=== PATIENT | male | born 1945 | race Caucasian/White ===

== ENCOUNTER 2017-10-17 | Day surgery (SDC) | END 2017-10-17 22:44 | disposition home or self-care (01) ==

== ENCOUNTER 2018-07-04 12:12 | Observation (INO) | payer OTHER ==
[~2018-07-04] VITALS: Ht 175.3 cm; Wt 160.2 kg
[~2018-07-04 12:12] MED LIST: ALBU90OI INH; ATOR20 PO; BENADRYL25 MG PO; CARV6.25 PO; MIRALAX PO; Pepcid20 MG PO; Prednisone20 MG PO; QVAR7.3 G1 INH; ZESTORETIC 20-251 E1 PO; ZESTORETIC PO
[2018-07-04 12:33] LABS: BASOPHILS ABSOLUTE AUTO 0.11 K/mm3 (0.00-0.23); BASOPHILS PERCENT AUTO 1 % (0-2); EOSINOPHILS PERCENT AUTO 3 % (0-6); Hemoglobin 15.6 g/dL (13.5-17.5); IMMATURE GRAN ABSOLUTE AUTO 0.02 K/mm3 (0.00-0.10); IMMATURE GRAN PERCENT AUTO 0 % (0-1); LYMPHOCYTES ABSOLUTE AUTO 1.94 K/mm3 (0.84-5.20); LYMPHOCYTES PERCENT AUTO 20 % (21-46); MONOCYTES ABSOLUTE AUTO 0.99 K/mm3 (0.16-1.47); MONOCYTES PERCENT AUTO 10 % (4-13); Mean Corpuscular HGB Conc 33.2 g/dL (31.5-36.5); Mean Corpuscular Volume 97 fL (80-100); Mean Platelet Volume 10.7 fL (9.1-12.4); NEUTROPHILS ABSOLUTE AUTO 6.26 K/mm3 (1.96-9.15); NEUTROPHILS PERCENT AUTO 65 % (41-73); Platelet Count 377 K/mm3 (150-400); RDW Coefficient Variation 13.7 % (11.7-14.2); Red Blood Cell Count 4.87 M/mm3 (4.30-5.90); White Blood Cell Count 9.62 K/mm3 (4.00-11.30)
[2018-07-04 12:59] LABS: Alanine Aminotransfer (ALT/SGP 33 U/L (12-78); Albumin, Blood 3.5 g/dL (3.4-5.0); Albumin/Globulin Ratio 0.8 (0.8-1.8); Alk Phos 90 U/L (50-136); Anion Gap 7 mmol/L (6-16); Aspartate Aminotrans (AST/SGOT 22 U/L (12-37); Bilirubin, Total 0.4 mg/dL (0.1-1.0); Blood Urea Nitrogen 25 mg/dL (8-24); Bun/Creatinine Ratio 24.5 (12.0-20.0); CO2, Blood 28 mmol/L (21-32); Calcium, Blood 8.7 mg/dL (8.5-10.1); Chloride, Blood 104 mmol/L (98-108); Creatinine, Blood 1.02 mg/dL (0.60-1.20); Globulin, Blood 4.2 g/dL (2.2-4.0); Glomerular Filtration Rate >60 (60-); Glucose, Blood 108 mg/dL (70-99); Potassium, Blood 3.8 mmol/L (3.5-5.5); Sodium, Blood 139 mmol/L (136-145); Total Protein, Blood 7.7 g/dL (6.4-8.2); Troponin I 0.067 ng/mL (0.000-0.040)
[2018-07-04] MEDS ORDERED: **INCOMPLETE MED REC (14:46)
[2018-07-04] MEDS ORDERED: POTCHL10ER PO (14:56)
[2018-07-04] MEDS ORDERED: FURO40 PO (14:57)
[2018-07-04] MEDS ORDERED: XARELTO20 MG PO (14:57)
[2018-07-04] MEDS ORDERED: ZYPITAMAG2 MG PO (14:58)
[2018-07-04] MEDS ORDERED: METO25ER PO (14:59)
[2018-07-04] MEDS ORDERED: AMLO5 PO (15:03)
[2018-07-04 17:27] LABS: D-Dimer, Quantitative 0.29 mg/L FEU (0.00-0.52); International Normalized Ratio 1.11; Prothrombin Time Results 11.7 Sec (9.7-11.5)
[2018-07-04] MEDS ORDERED: LIVALO4 MG PO (18:19)
--- NOTE | 2018-07-04 18:48 | NUR ---
NURSING PCU DAYSHIFT SUMMARY: Assumed care of pt at approx 1800. Arrived from ER via gurney accompanied by friend and RN. Xfer w/SBA to unit bed, mild general weakness noted. Skin is fairly intact w/redness noted to BLE. C/O pain in L shoulder, back, and L neck which has improved since medication adminimstration in ER. Tele in place, afib, hypertensive, non-pitting BLE edema, annette hose in place. L/S fairly dim t/o, dyspnea w/minimal exertion, O2 sat mid 90's on 3L NC, no noted cough. Abd obese, SNT, BT+, voiding w/o difficulty per pt. PIV x1, hep gtt infusing at 13u/kg/hr as per pharmacy dosing. No s/s of acute distress at this time. Troponin drawn, awaiting results. Pt oriented to room and call system. Pt denies any current needs or questions regarding plan of care. Call light in reach and pt is able to use w/o difficulty. Cont to monitor until rpt is given to NOC RN.
[2018-07-04 19:13] LABS: Creatine Kinase MB 2.2 ng/mL (0.0-3.6); Creatine Kinase MB Index 1.5 (0.0-4.0); Troponin I 0.066 ng/mL (0.000-0.040)
[2018-07-05 00:44] LABS: BASOPHILS ABSOLUTE AUTO 0.08 K/mm3 (0.00-0.23); BASOPHILS PERCENT AUTO 1 % (0-2); EOSINOPHILS ABSOLUTE AUTO 0.39 K/mm3 (0.00-0.68); EOSINOPHILS PERCENT AUTO 4 % (0-6); Hematocrit 41.8 % (37.0-53.0); Hemoglobin 13.9 g/dL (13.5-17.5); IMMATURE GRAN ABSOLUTE AUTO 0.02 K/mm3 (0.00-0.10); IMMATURE GRAN PERCENT AUTO 0 % (0-1); LYMPHOCYTES PERCENT AUTO 22 % (21-46); MONOCYTES ABSOLUTE AUTO 0.94 K/mm3 (0.16-1.47); MONOCYTES PERCENT AUTO 9 % (4-13); Mean Corpuscular HGB 32.6 pg (26.0-34.0); Mean Corpuscular HGB Conc 33.3 g/dL (31.5-36.5); Mean Corpuscular Volume 98 fL (80-100); NEUTROPHILS PERCENT AUTO 64 % (41-73); Platelet Count 339 K/mm3 (150-400); RDW Coefficient Variation 13.8 % (11.7-14.2); RDW Standard Deviation 49.5 fL (35.1-46.3); Red Blood Cell Count 4.26 M/mm3 (4.30-5.90); White Blood Cell Count 10.03 K/mm3 (4.00-11.30)
[2018-07-05 01:03] LABS: Anion Gap 7 mmol/L (6-16); Blood Urea Nitrogen 29 mg/dL (8-24); Bun/Creatinine Ratio 25.2 (12.0-20.0); CO2, Blood 30 mmol/L (21-32); Calcium, Blood 8.4 mg/dL (8.5-10.1); Chloride, Blood 103 mmol/L (98-108); Cholesterol 130 mg/dL (50-200); Creatinine, Blood 1.15 mg/dL (0.60-1.20); Glomerular Filtration Rate >60 (60-); Glucose, Blood 130 mg/dL (70-99); Potassium, Blood 3.5 mmol/L (3.5-5.5); Sodium, Blood 140 mmol/L (136-145); Triglycerides 203 mg/dL (30-160)
[2018-07-05 01:06] LABS: Creatine Kinase MB 2.6 ng/mL (0.0-3.6); Creatine Kinase MB Index 1.6 (0.0-4.0); Troponin I 0.061 ng/mL (0.000-0.040)
--- NOTE | 2018-07-05 05:34 | NUR ---
SHIFT SUMMARY PT ALERT AND ORIENTED. VS STABLE. PT RESTED MOST OF SHIFT. LS DIM THROUGHOUT. 02 SATS >92% ON 2-3L NC. PT DENIES ANY CHEST PAIN. HEPARIN GTT INF AT 15/U/KG. PT VOIDING WITHOUT DIFFICULTY. ABD DISTENDED PT STATES NORMAL. PT DENIES A NEED FOR ANYTHING AT THIS TIME. NO OTHER CHANGES SINCE INITIAL ASSESSMENT. WILL CONTINUE TO MONITOR AND REPORT TO ONCOMING RN. CALL LIGHT IN REACH.
--- NOTE | 2018-07-05 07:31 | NUR ---
NURSING PCU DAYSHIFT: Assumed care of pt at approx 0700. A/O, pleasant, cooperative w/care, mildly [place]. Denies any pain/discomfort. Repositions independently though mild general weakness is noted. Skin is fairly intact w/redness noted to RLE. Tele in place, afib w/HR 90's, SBP 140's, 1+ BLE edema, no c/o CP/pressure. L/S dim t/o, dyspnea w/minimal exertion, O2 sat mid 90's on RA, no noted cough. Abd obese and distended which pt states is normal, BT+, voiding w/o difficuty per pt. PIV x1, hep gtt infusing at 15u/kg/hr. No s/s of acute distress at this time. HC tech currently at bedside for ECHO. Pt denies any current needs or questions regarding plan of care. Awaiting rounding from PMD. Call light in reach, cont to monitor for any changes.
--- NOTE | 2018-07-05 08:43 | NUR ---
ECHOCARDIOGRAM COMPLETE
--- NOTE | 2018-07-05 12:03 | NUR ---
Spiritual care visit conducted. Patient was sitting up in bed and alert when I entered the patient's room. I introduced myself and patient welcomed me to stay. Therapeutic alliance was established and patient openly shared about the loss of his to cancer, the struggle he has had in his weight management, and his spiritual journey. I Provided grief support, spiritual guidance, reinforced helpful attitudes and practices and quoted inspirational scriptures. Patient responded well and was complimentary of my visit.
--- NOTE | 2018-07-05 18:29 | NUR ---
NURSING PCU DAYSHIFT: No acute changes noted t/o the shift. Pt has been pleasant and remains in good spirits. Seen by PMD, new d/o received. Two day stress test scheduled w/resting portion today, plan for stress portion tomorrow. Pt denies any current needs or questions regarding plan of care. Call light in reach and pt is able to use w/o difficulty. Cont to monitor until rpt is given to NOC RN.
[2018-07-06 04:13] LABS: BASOPHILS ABSOLUTE AUTO 0.09 K/mm3 (0.00-0.23); BASOPHILS PERCENT AUTO 1 % (0-2); EOSINOPHILS PERCENT AUTO 4 % (0-6); Hematocrit 43.3 % (37.0-53.0); Hemoglobin 14.1 g/dL (13.5-17.5); IMMATURE GRAN ABSOLUTE AUTO 0.02 K/mm3 (0.00-0.10); IMMATURE GRAN PERCENT AUTO 0 % (0-1); LYMPHOCYTES PERCENT AUTO 17 % (21-46); MONOCYTES ABSOLUTE AUTO 0.98 K/mm3 (0.16-1.47); MONOCYTES PERCENT AUTO 10 % (4-13); Mean Corpuscular HGB 31.8 pg (26.0-34.0); Mean Corpuscular HGB Conc 32.6 g/dL (31.5-36.5); Mean Corpuscular Volume 98 fL (80-100); Mean Platelet Volume 11.4 fL (9.1-12.4); NEUTROPHILS ABSOLUTE AUTO 7.12 K/mm3 (1.96-9.15); NEUTROPHILS PERCENT AUTO 69 % (41-73); Platelet Count 338 K/mm3 (150-400); RDW Coefficient Variation 13.5 % (11.7-14.2); RDW Standard Deviation 48.8 fL (35.1-46.3); Red Blood Cell Count 4.43 M/mm3 (4.30-5.90); White Blood Cell Count 10.31 K/mm3 (4.00-11.30)
[2018-07-06 04:26] LABS: Albumin, Blood 3.1 g/dL (3.4-5.0); Anion Gap 7 mmol/L (6-16); Blood Urea Nitrogen 25 mg/dL (8-24); Bun/Creatinine Ratio 23.4 (12.0-20.0); CO2, Blood 31 mmol/L (21-32); Calcium, Blood 8.6 mg/dL (8.5-10.1); Chloride, Blood 102 mmol/L (98-108); Creatinine, Blood 1.07 mg/dL (0.60-1.20); Glomerular Filtration Rate >60 (60-); Glucose, Blood 128 mg/dL (70-99); Phosphorus, Blood 3.6 mg/dL (2.5-4.9); Potassium, Blood 3.6 mmol/L (3.5-5.5); Sodium, Blood 140 mmol/L (136-145); Troponin I 0.053 ng/mL (0.000-0.040)
--- NOTE | 2018-07-06 05:27 | NUR ---
SHIFT SUMMARY: PATIENT SLEPT WELL THIS SHIFT, VSS. PATIENT AWARE THAT HE IS NPO FOR BREAKFAST IN PREPERATION OF 2ND PORTION OF STRESS TEST. NO OTHER ISSUES NOTED, CALL LIGHT WITHIN REACH, BED LOW AN LOCKED
--- NOTE | 2018-07-06 16:59 | NUR ---
SUMMARY the pt completed the second portion of his stress test. Reports throughout the day that he has had no chest pain. His neck pain was relieved this morning with tylenol and lidocaine patch. He states that his current dyspnea with minimal exertion is baseline normal for him. States that he had an angiogram 2 years ago and that the vessels were clear. States also that he had an echocardiogram around the same time. Cardiology consult was done today by Dr. Vega; the pt hopes that he can be released to go home after the results of the stress test are done.
[2018-07-06] MEDS ORDERED: AMLO5 PO (18:08)
[2018-07-06] MEDS ORDERED: ACET325 PO (18:08)
[2018-07-06] MEDS ORDERED: BISA10S PR (18:09)
[2018-07-06] MEDS ORDERED: DOCU100 PO (18:09)
[2018-07-06] MEDS ORDERED: LIDO700A20 TOP (18:09)
[2018-07-06] MEDS ORDERED: MELA3 PO (18:10)
[2018-07-06] MEDS ORDERED: ONDA4ODT MM (18:11)
[2018-07-06] MEDS ORDERED: NITR.4SL SL (18:11)
== END 2018-07-06 18:45 | disposition home or self-care (01) ==
LOC: ER 12:12 → PCU 12:13
PROVIDERS: Emergency Medicine; Physician Assistant; ADMIT Family Medicine
DX: R07.9 Chest pain, unspecified (principal); R79.89 Other specified abnormal findings of blood chemistry; I10 Essential (primary) hypertension; E78.5 Hyperlipidemia, unspecified; I48.0 Paroxysmal atrial fibrillation; E66.01 Morbid (severe) obesity due to excess calories; R73.03 Prediabetes; Z87.891 Personal history of nicotine dependence; Z79.01 Long term (current) use of anticoagulants; Z88.8 Allergy status to other drugs, medicaments and biological substances; Z79.899 Other long term (current) drug therapy
CPT/HCPCS: 36415; 71046; 78452; 80048; 80053; 80069; 82465; 82550; 82553; 83880; 84478; 84484; 85025; 85379; 85610; 85730; 93005; 93010; 93017; 93306; 94762; 96365; 96375; 96376; 99285-25; A9500; C9113; G0378; J0706; J1644; J2270; J2785; J7030

== ENCOUNTER → 2018-08-14 | Outpatient (CLI) | payer OTHER ==
[~2018-08-14] MED LIST changes: +**INCOMPLETE MED REC; +ACET325 PO; +AMLO5 PO; +BISA10S PR; +DOCU100 PO; +FURO40 PO; +LIDO700A20 TOP; +LIVALO4 MG PO; +MELA3 PO; +METO25ER PO; +NITR.4SL SL; +ONDA4ODT MM; +POTCHL10ER PO; +XARELTO20 MG PO; +ZYPITAMAG2 MG PO
[2018-08-14 11:20] LABS: BASOPHILS PERCENT AUTO 1 % (0-2); EOSINOPHILS PERCENT AUTO 2 % (0-6); Hematocrit 47.4 % (37.0-53.0); Hemoglobin 15.9 g/dL (13.5-17.5); IMMATURE GRAN ABSOLUTE AUTO 0.02 K/mm3 (0.00-0.10); IMMATURE GRAN PERCENT AUTO 0 % (0-1); LYMPHOCYTES PERCENT AUTO 15 % (21-46); MONOCYTES ABSOLUTE AUTO 0.84 K/mm3 (0.16-1.47); MONOCYTES PERCENT AUTO 9 % (4-13); Mean Corpuscular HGB 32.1 pg (26.0-34.0); Mean Corpuscular HGB Conc 33.5 g/dL (31.5-36.5); Mean Corpuscular Volume 96 fL (80-100); NEUTROPHILS ABSOLUTE AUTO 6.84 K/mm3 (1.96-9.15); NEUTROPHILS PERCENT AUTO 73 % (41-73); RDW Standard Deviation 49.1 fL (35.1-46.3); Red Blood Cell Count 4.96 M/mm3 (4.30-5.90)
[2018-08-14 11:35] LABS: Anion Gap 6 mmol/L (6-16); Blood Urea Nitrogen 22 mg/dL (8-24); CO2, Blood 33 mmol/L (21-32); Calcium, Blood 8.9 mg/dL (8.5-10.1); Chloride, Blood 102 mmol/L (98-108); Creatinine, Blood 1.16 mg/dL (0.60-1.20); Glomerular Filtration Rate >60 (60-); Glucose, Blood 142 mg/dL (70-99); Potassium, Blood 4.5 mmol/L (3.5-5.5); Sodium, Blood 141 mmol/L (136-145)
[2018-08-14 11:42] LABS: Mean Platelet Volume 11.3 fL (9.1-12.4); Platelet Count 420 K/mm3 (150-400)
== END | disposition home or self-care (01) ==
LOC: LAB SHORT 11:14 → LAB EV 11:14
PROVIDERS: Family Medicine
DX: I48.91 Unspecified atrial fibrillation (principal); R06.09 Other forms of dyspnea
CPT/HCPCS: 80048; 83880; 84484; 85025

== ENCOUNTER 2018-09-11 15:43 | Emergency (ER) | payer OTHER ==
[~2018-09-11] VITALS: Ht 175.3 cm; Wt 151.1 kg
[2018-09-11] MEDS ORDERED: COLCRYS0.6 MG PO (16:40)
[2018-09-11] MEDS ORDERED: Norco 5-325 Ta1 EACH PO (16:40)
== END 2018-09-11 18:06 | disposition home or self-care (01) ==
LOC: ER 15:43
DX: M79.672 Pain in left foot (principal); H61.22 Impacted cerumen, left ear; I11.0 Hypertensive heart disease with heart failure; I50.9 Heart failure, unspecified; I48.91 Unspecified atrial fibrillation; Z88.1 Allergy status to other antibiotic agents; Z88.8 Allergy status to other drugs, medicaments and biological substances; Z79.899 Other long term (current) drug therapy; Z87.891 Personal history of nicotine dependence
CPT/HCPCS: 73630; 99283-25; A9270-GY

== ENCOUNTER 2019-05-06 06:00 | Emergency (ER) | payer OTHER ==
[~2019-05-06] VITALS: Ht 175.3 cm; Wt 149.7 kg
[~2019-05-06 06:00] MED LIST changes: +COLCRYS0.6 MG PO; +Norco 5-325 Ta1 EACH PO
[2019-05-06 07:45] LABS: Calcium, Ionized (POC) 1.19 mmol/L (1.10-1.46); Chloride (POC) 94 mmol/L (98-108); Glucose (ISTAT POC) 136 mg/dL (70-99); Hemoglobin (POC) 15.6 g/dL (13.5-17.5); Potassium (POC) 3.6 mmol/L (3.5-5.5); Sodium (POC) 137 mmol/L (135-148); Total CO2 (POC) 33 mmol/L (21-32)
[2019-05-06] MEDS ORDERED: COLCHICINE0.6 M1 PO (08:17)
== END 2019-05-06 08:52 | disposition home or self-care (01) ==
LOC: ER 06:00
PROVIDERS: Emergency Medicine
DX: M25.571 Pain in right ankle and joints of right foot (principal); I11.0 Hypertensive heart disease with heart failure; I50.9 Heart failure, unspecified; I48.91 Unspecified atrial fibrillation; M10.9 Gout, unspecified; Z87.891 Personal history of nicotine dependence; Z88.1 Allergy status to other antibiotic agents; Z88.8 Allergy status to other drugs, medicaments and biological substances; Z79.899 Other long term (current) drug therapy
CPT/HCPCS: 73610; 80047; 85014; 99284-25

== ENCOUNTER 2020-04-01 06:39 | Day surgery (SDC) | payer OTHER ==
[~2020-04-01] VITALS: Ht 175.3 cm; Wt 165.3 kg
[~2020-04-01 06:39] MED LIST changes: +ALLO100 PO; +COLCHICINE0.6 M1 PO; +COLCHICINE0.6 MG PO; +LIVALO2 MG PO; +METF500 PO; +METO50ER PO; +Norvasc5 MG PO; +POTA10T PO; +TAMS.4ER PO; +XARELTO2.5 M1 PO
--- NOTE | 2020-04-01 07:25 | NUR ---
History, Chart, Medications and Allergies reviewed before start of procedure. Patient States Post-Procedure ride home has been arranged.
--- NOTE | 2020-04-01 08:00 | NUR ---
04/01/20 0800 [place] History, Chart, Medications and Allergies reviewed before start of procedure.MONITOR INTACT WITH CONTINUOUS PULSE OXIMETRY AND INTERMITTENT BP.3-LEAD EKG REVIEWED WITH PHYSICIAN PRIOR TO START OF PROCEDURE.O2 VIA N/C INTACT THROUGHOUT SEDATION/PROCEDURE. See Anesthesia record.
--- NOTE | 2020-04-01 09:17 | NUR ---
Patient up to Ambulate independently. Gait steady. Discharge instructions reviewed with patient. Patient verbalizes understanding. Copy given to patient to take home. Discharged via wheelchair to private car for ride home.
== END 2020-04-01 23:21 | disposition home or self-care (01) ==
LOC: ORSCMMR 06:39 → ORD 08:00 → ORSCMMR 23:21
PROVIDERS: Internal Medicine Gastroenterology
PROC: 0DBM8ZX Excision of Descending Colon, Via Natural or Artificial Opening Endoscopic, Diagnostic (ICD-10-PCS; principal; 2020-04-01 08:00)
PROC: 0DBE8ZX Excision of Large Intestine, Via Natural or Artificial Opening Endoscopic, Diagnostic (ICD-10-PCS; principal; 2020-04-01 08:00)
DX: K51.90 Ulcerative colitis, unspecified, without complications (principal); K51.40 Inflammatory polyps of colon without complications; I48.20 Chronic atrial fibrillation, unspecified; G47.33 Obstructive sleep apnea (adult) (pediatric); E11.9 Type 2 diabetes mellitus without complications; I10 Essential (primary) hypertension; E78.00 Pure hypercholesterolemia, unspecified; E66.01 Morbid (severe) obesity due to excess calories; Z68.43 Body mass index [BMI] 50.0-59.9, adult; Z79.01 Long term (current) use of anticoagulants; Z79.84 Long term (current) use of oral hypoglycemic drugs; Z79.899 Other long term (current) drug therapy
CPT/HCPCS: 82947; 88305; J2704; J7120

== ENCOUNTER → 2020-10-12 | Outpatient (CLI) | payer OTHER ==
[2020-10-12 16:59] LABS: BASOPHILS ABSOLUTE AUTO 0.12 K/mm3 (0.00-0.23); BASOPHILS PERCENT AUTO 1 % (0-2); EOSINOPHILS PERCENT AUTO 3 % (0-6); Hematocrit 45.7 % (37.0-53.0); Hemoglobin 15.3 g/dL (13.5-17.5); IMMATURE GRAN ABSOLUTE AUTO 0.03 K/mm3 (0.00-0.10); IMMATURE GRAN PERCENT AUTO 0 % (0-1); LYMPHOCYTES ABSOLUTE AUTO 1.72 K/mm3 (0.84-5.20); LYMPHOCYTES PERCENT AUTO 19 % (21-46); MONOCYTES ABSOLUTE AUTO 0.88 K/mm3 (0.16-1.47); MONOCYTES PERCENT AUTO 10 % (4-13); Mean Corpuscular HGB 33.1 pg (26.0-34.0); Mean Corpuscular HGB Conc 33.5 g/dL (31.5-36.5); Mean Corpuscular Volume 99 fL (80-100); Mean Platelet Volume 11.1 fL (9.1-12.4); NEUTROPHILS ABSOLUTE AUTO 6.25 K/mm3 (1.96-9.15); NEUTROPHILS PERCENT AUTO 67 % (41-73); Platelet Count 393 K/mm3 (150-400); RDW Coefficient Variation 14.7 % (11.7-14.2); RDW Standard Deviation 53.4 fL (35.1-46.3); Red Blood Cell Count 4.62 M/mm3 (4.30-5.90)
[2020-10-12 17:40] LABS: Alanine Aminotransfer (ALT/SGP 45 U/L (12-78); Albumin, Blood 3.7 g/dL (3.4-5.0); Albumin/Globulin Ratio 0.9 (0.8-1.8); Alk Phos 73 U/L (50-136); Anion Gap 7 mmol/L (6-16); Aspartate Aminotrans (AST/SGOT 28 U/L (12-37); Bilirubin, Total 0.5 mg/dL (0.1-1.0); Blood Urea Nitrogen 23 mg/dL (8-24); Bun/Creatinine Ratio 22.3 (12.0-20.0); CO2, Blood 26 mmol/L (21-32); Calcium, Blood 9.7 mg/dL (8.5-10.1); Chloride, Blood 107 mmol/L (98-108); Creatinine, Blood 1.03 mg/dL (0.60-1.20); Glomerular Filtration Rate >60 (60-); Glucose, Blood 154 mg/dL (70-99); Potassium, Blood 3.7 mmol/L (3.5-5.5); Sodium, Blood 140 mmol/L (136-145); Total Protein, Blood 7.7 g/dL (6.4-8.2)
== END | disposition home or self-care (01) ==
LOC: OLS 15:25 → LAB SHORT 15:25
PROVIDERS: Family Medicine
DX: E11.8 Type 2 diabetes mellitus with unspecified complications (principal); I10 Essential (primary) hypertension
CPT/HCPCS: 36415; 80053; 83036; 85025

== ENCOUNTER → 2021-04-06 | Outpatient (CLI) | payer OTHER ==
[~2021-04-06] MED LIST changes: +GLIP5 PO
== END | disposition home or self-care (01) ==
LOC: LAB SHORT 08:42
DX: D18.01 Hemangioma of skin and subcutaneous tissue (principal)
CPT/HCPCS: 88305

== ENCOUNTER → 2021-12-09 | Outpatient (CLI) | payer OTHER | END | disposition home or self-care (01) | LOC: PLD 15:01 → LAB SHORT 15:01 | DX: L57.0 Actinic keratosis (principal) | CPT/HCPCS: 88305 ==

== ENCOUNTER → 2022-10-04 | Outpatient (CLI) | payer OTHER ==
[2022-10-04 14:34] LABS: Albumin, Blood 3.7 g/dL (3.4-5.0); Albumin/Globulin Ratio 0.9 (0.8-1.8); Bilirubin, Total 0.5 mg/dL (0.1-1.0); Bun/Creatinine Ratio 16.4 (12.0-20.0); Calcium, Blood 9.3 mg/dL (8.5-10.1); Creatinine, Blood 1.4 mg/dL (0.60-1.20); Globulin, Blood 4.1 g/dL (2.2-4.0); Potassium, Blood 4.2 mmol/L (3.5-5.5); Total Protein, Blood 7.8 g/dL (6.4-8.2)
[2022-10-04 14:40] LABS: BASOPHILS ABSOLUTE AUTO 0.13 K/mm3 (0.00-0.23); BASOPHILS PERCENT AUTO 1 % (0-2); EOSINOPHILS ABSOLUTE AUTO 0.27 K/mm3 (0.00-0.68); EOSINOPHILS PERCENT AUTO 3 % (0-6); Hematocrit 45.1 % (37.0-53.0); Hemoglobin 15.7 g/dL (13.5-17.5); IMMATURE GRAN ABSOLUTE AUTO 0.03 K/mm3 (0.00-0.10); IMMATURE GRAN PERCENT AUTO 0 % (0-1); LYMPHOCYTES PERCENT AUTO 15 % (21-46); MONOCYTES ABSOLUTE AUTO 0.82 K/mm3 (0.16-1.47); MONOCYTES PERCENT AUTO 8 % (4-13); Mean Corpuscular HGB 32.8 pg (26.0-34.0); Mean Corpuscular HGB Conc 34.8 g/dL (31.5-36.5); Mean Corpuscular Volume 94 fL (80-100); Mean Platelet Volume 11.5 fL (9.1-12.4); NEUTROPHILS ABSOLUTE AUTO 7.09 K/mm3 (1.96-9.15); NEUTROPHILS PERCENT AUTO 72 % (41-73); Platelet Count 391 K/mm3 (150-400); RDW Coefficient Variation 14.2 % (11.7-14.2); RDW Standard Deviation 48.4 fL (35.1-46.3); Red Blood Cell Count 4.79 M/mm3 (4.30-5.90); White Blood Cell Count 9.84 K/mm3 (4.00-11.30)
== END | disposition home or self-care (01) ==
LOC: LAB 14:17 → LAB SHORT 14:17
PROVIDERS: Chiropractor
DX: R10.32 Left lower quadrant pain (principal); I48.91 Unspecified atrial fibrillation; R77.8 Other specified abnormalities of plasma proteins
CPT/HCPCS: 80053; 83690; 83880; 84484; 85025

== ENCOUNTER 2022-10-06 10:16 | Emergency (ER) | payer OTHER ==
[~2022-10-06] VITALS: Ht 175.3 cm; Wt 163.3 kg
[2022-10-06 12:23] LABS: Hematocrit 45.3 % (37.0-53.0); Hemoglobin 15.3 g/dL (13.5-17.5); Mean Corpuscular HGB 32.2 pg (26.0-34.0); Mean Corpuscular HGB Conc 33.8 g/dL (31.5-36.5); Mean Corpuscular Volume 95 fL (80-100); RDW Coefficient Variation 14.1 % (11.7-14.2); RDW Standard Deviation 49.1 fL (35.1-46.3); Red Blood Cell Count 4.75 M/mm3 (4.30-5.90)
[2022-10-06 12:32] LABS: Mean Platelet Volume 11.1 fL (9.1-12.4); Platelet Count 400 K/mm3 (150-400); White Blood Cell Count 8.11 K/mm3 (4.00-11.30)
[2022-10-06 12:35] LABS: Albumin, Blood 3.6 g/dL (3.4-5.0); Albumin/Globulin Ratio 0.9 (0.8-1.8); Bilirubin, Total 0.4 mg/dL (0.1-1.0); Calcium, Blood 9.4 mg/dL (8.5-10.1); Creatinine, Blood 1.05 mg/dL (0.60-1.20); Globulin, Blood 4.1 g/dL (2.2-4.0); Potassium, Blood 4.2 mmol/L (3.5-5.5); Total Protein, Blood 7.7 g/dL (6.4-8.2)
[2022-10-06] MEDS ORDERED: COLCHICINE0.6 MG PO (12:41)
[2022-10-06 13:01] LABS: BASOPHILS ABSOLUTE MAN 0.32 K/mm3 (0.00-0.23); BASOPHILS PERCENT MAN 4 % (0-2); EOSINOPHILS ABSOLUTE MAN 0.16 K/mm3 (0.00-0.68); EOSINOPHILS PERCENT MAN 2 % (0-6); LYMPHOCYTES ABSOLUTE MAN 1.78 K/mm3 (0.84-5.20); LYMPHOCYTES PERCENT MAN 22 % (21-46); MONOCYTES ABSOLUTE MAN 0.72 K/mm3 (0.16-1.47); MONOCYTES PERCENT MAN 9 % (4-13); SEG NEUTROPHILS PERCENT MAN 63 % (41-73); TOTAL CELLS COUNTED 100
[2022-10-06 14:30] VITALS: BP 151/70
== END 2022-10-06 15:07 | disposition home or self-care (01) ==
LOC: ER 10:16
PROVIDERS: Student in an Organized Health Care Education/Training Program
DX: R19.7 Diarrhea, unspecified (principal); M10.9 Gout, unspecified; I11.0 Hypertensive heart disease with heart failure; I50.9 Heart failure, unspecified; I48.91 Unspecified atrial fibrillation; Z87.891 Personal history of nicotine dependence; Z88.0 Allergy status to penicillin; Z88.8 Allergy status to other drugs, medicaments and biological substances; Z88.1 Allergy status to other antibiotic agents; Z79.01 Long term (current) use of anticoagulants; Z79.899 Other long term (current) drug therapy; Z79.84 Long term (current) use of oral hypoglycemic drugs
CPT/HCPCS: 80053; 85025; 99283

== ENCOUNTER → 2023-01-31 | Outpatient (CLI) | payer OTHER ==
[2023-01-31 13:05] LABS: Creatinine, Urine Random 95.8 mg/dL (27.00-270.00)
[2023-01-31 13:07] LABS: Microalb/Creat Ratio UR, Rand 54.384 mg/g (0.000-30.000); Microalbumin, Random Urine 52.1 mg/L (0.000-20.000)
== END | disposition home or self-care (01) ==
LOC: LAB SHORT 09:50 → LAB 09:50
PROVIDERS: Internal Medicine Endocrinology, Diabetes & Metabolism
DX: E11.29 Type 2 diabetes mellitus with other diabetic kidney complication (principal)
CPT/HCPCS: 82043; 82570

== ENCOUNTER 2023-12-06 13:51 | Emergency (ER) | payer OTHER ==
[~2023-12-06] VITALS: Ht 175.3 cm; Wt 158.8 kg
[~2023-12-06 13:51] MED LIST changes: +FAMO20; +LOSA50 PO; +TRULICITY0.75 MG/01 SC
[2023-12-06] MEDS ORDERED: Lactated Ringer's 1,000 ML IV ONE ×2 (14:50→15:05)
[2023-12-06] MEDS ORDERED: Meclizine HCl 25 MG Tab PO ONE (15:15)
[2023-12-06 15:58] LABS: BASOPHILS ABSOLUTE AUTO 0.11 K/mm3 (0.00-0.23); BASOPHILS PERCENT AUTO 1 % (0-2); EOSINOPHILS ABSOLUTE AUTO 0.22 K/mm3 (0.00-0.68); EOSINOPHILS PERCENT AUTO 2 % (0-6); Hematocrit 50.2 % (37.0-53.0); Hemoglobin 16.8 g/dL (13.5-17.5); IMMATURE GRAN ABSOLUTE AUTO 0.03 K/mm3 (0.00-0.10); IMMATURE GRAN PERCENT AUTO 0 % (0-1); LYMPHOCYTES ABSOLUTE AUTO 1.11 K/mm3 (0.84-5.20); LYMPHOCYTES PERCENT AUTO 11 % (21-46); MONOCYTES ABSOLUTE AUTO 0.72 K/mm3 (0.16-1.47); MONOCYTES PERCENT AUTO 7 % (4-13); Mean Corpuscular HGB 31.8 pg (26.0-34.0); Mean Corpuscular HGB Conc 33.5 g/dL (31.5-36.5); Mean Corpuscular Volume 95 fL (80-100); Mean Platelet Volume 10.7 fL (9.1-12.4); NEUTROPHILS ABSOLUTE AUTO 8.41 K/mm3 (1.96-9.15); NEUTROPHILS PERCENT AUTO 79 % (41-73); Platelet Count 414 K/mm3 (150-400); RDW Coefficient Variation 14.8 % (11.7-14.2); RDW Standard Deviation 52.2 fL (35.1-46.3); Red Blood Cell Count 5.28 M/mm3 (4.30-5.90)
[2023-12-06 16:34] LABS: Albumin, Blood 4.1 g/dL (3.4-5.0); Bilirubin, Total 0.4 mg/dL (0.1-1.0); Bun/Creatinine Ratio 21.3 (12.0-20.0); Calcium, Blood 9.7 mg/dL (8.5-10.1); Creatinine, Blood 1.41 mg/dL (0.60-1.20); Globulin, Blood 4.2 g/dL (2.2-4.0); Potassium, Blood 4.5 mmol/L (3.5-5.5); Total Protein, Blood 8.3 g/dL (6.4-8.2)
[2023-12-06] MEDS ORDERED: MECL25 PO (17:05)
[2023-12-06 19:38] VITALS: BP 124/74
== END 2023-12-06 20:04 | disposition home or self-care (01) ==
LOC: ER 13:51
PROVIDERS: Emergency Medicine
DX: R42 Dizziness and giddiness (principal); Z79.899 Other long term (current) drug therapy; Z79.02 Long term (current) use of antithrombotics/antiplatelets; Z79.84 Long term (current) use of oral hypoglycemic drugs
CPT/HCPCS: 80053; 84484; 85025; 96360; 99284-25; A9270; J7120

== ENCOUNTER → 2024-08-15 | Outpatient (CLI) | payer OTHER ==
[~2024-08-15] MED LIST changes: +MECL25 PO
[2024-08-15 11:16] LABS: Creatinine, Urine Random 91.5 mg/dL (27.00-270.00)
== END | disposition home or self-care (01) ==
LOC: LAB 08:26 → LAB SHORT 08:26 → LAB FUT 08-15 06:25
PROVIDERS: Internal Medicine Endocrinology, Diabetes & Metabolism
DX: E11.29 Type 2 diabetes mellitus with other diabetic kidney complication (principal)
CPT/HCPCS: 82043; 82570